=== PATIENT | female | born 1985 | race African-American/Black ===

== ENCOUNTER 2017-02-26 13:21 | Emergency (ER) | payer MEDICAID ==
--- NOTE | 2017-02-26 14:27 | ER Document Report ---
ED Medical Screen (RME) - General Chief Complaint: Abdominal Pain Stated Complaint: ABDOMINAL PAIN Time Seen by Provider: 02/26/17 14:18 Notes: This 31-year-old female patient comes emergency room complaining of intermittent pelvic pain for the past 5 days. LMP was on 02/24/2017. She had a conization biopsy on 02/20/2017, was treated prior to that with Flagyl for vaginal discharge. I have greeted and performed a rapid initial assessment of this patient. A comprehensive ED assessment and evaluation of the patient, analysis of test results and completion of the medical decision making process will be conducted by additional ED providers. TRAVEL OUTSIDE OF THE U[place] IN LAST 30 DAYS: No - Related Data Allergies/Adverse Reactions: Shellfish * [Shellfish] Allergy (Intermediate, Verified 07/21/16 09:29) swollen throat, itching Past Medical History Renal/ Medical History: Denies: Hx Peritoneal Dialysis Past Surgical History: Reports: Hx Gynecologic Surgery - OVARIAN CYST REMOVAL - Immunizations Hx Diphtheria, Pertussis, Tetanus Vaccination: Yes Physical Exam - Vital signs Vitals: Temp Pulse Resp BP Pulse Ox 98.9 F 82 16 119/80 97 02/26/17 13:42 02/26/17 13:42 02/26/17 13:42 02/26/17 13:42 02/26/17 13:42 Course - Vital Signs Vital signs: Temp Pulse Resp BP Pulse Ox 98.9 F 82 16 119/80 97 02/26/17 13:42 02/26/17 13:42 02/26/17 13:42 02/26/17 13:42 02/26/17 13:42
[2017-02-26 15:08] LABS: ABSOLUTE BASOPHILS # (AUTO) 0.1 10^3/uL (0.0-0.2); ABSOLUTE EOSINOPHILS # (AUTO) 0.2 10^3/uL (0.0-0.6); ABSOLUTE LYMPHOCYTES (AUTO) 2.9 10^3/uL (0.5-4.7); ABSOLUTE MONOCYTES (AUTO) 0.5 10^3/uL (0.1-1.4); ABSOLUTE NEUT (AUTO) 6.2 10^3/uL (1.7-8.2); BASOPHILS % (AUTO) 0.9 % (0-2); EOSINOPHILS % (AUTO) 2.3 % (0-6); HEMATOCRIT 38.1 % (36.0-47.0); HEMOGLOBIN 12.6 g/dL (12.0-15.5); HGB HCT DIFFERENCE -0.3; LYMPHOCYTES % (AUTO) 29.3 % (13-45); MEAN CORPUSCULAR HEMOGLOBIN 30.3 pg (27.0-33.4); MEAN CORPUSCULAR VOLUME 92 fl (80-97); RED BLOOD COUNT 4.16 10^6/uL (3.72-5.28); RED CELL DISTRIBUTION WIDTH 13.2 % (11.5-14.0); SEGMENTED NEUTROPHILS % (AUTO) 62.5 % (42-78)
[2017-02-26 15:21] LABS: ALANINE AMINOTRANSFERASE 32 U/L (9-52); ALBUMIN 3.8 g/dL (3.5-5.0); ALKALINE PHOSPHATASE 87 U/L (38-126); ANION GAP 9 (5-19); ASPARTATE AMINO TRANSFERASE 24 U/L (14-36); BILIRUBIN,DIRECT 0.2 mg/dL (0.0-0.4); BILIRUBIN,TOTAL 0.3 mg/dL (0.2-1.3); BLOOD UREA NITROGEN 11 mg/dL (7-20); CARBON DIOXIDE 27 mmol/L (22-30); CHLORIDE 105 mmol/L (98-107); CREATININE RESULT 0.69 mg/dL (0.52-1.25); GLUCOSE 84 mg/dL (75-110); POTASSIUM 4.6 mmol/L (3.6-5.0); SODIUM 140.9 mmol/L (137-145); TOTAL PROTEIN 7.1 g/dL (6.3-8.2)
[2017-02-26 16:37] LABS: CHLAM PCR NOT DETECTED (NOT DETECT)
--- NOTE | 2017-02-26 16:48 | ER Document Report ---
ED General - General Chief Complaint: Abdominal Pain Stated Complaint: ABDOMINAL PAIN Time Seen by Provider: 02/26/17 14:18 TRAVEL OUTSIDE OF THE [place].S. IN LAST 30 DAYS: No - HPI Notes: Patient is a 31-year-old female presents to the ED complaining of pelvic pain intermittently 1 week. Patient states that she did start her menstrual cycle up 2 days ago. He did have a conization biopsy 6 days ago. Patient states that she was treated for bacterial vaginosis 2 weeks ago with Flagyl. Patient states that this pain is different than her menstrual cramps. Pain is described as sharp. Patient concerned about an ovarian cyst as she has had one in the past. She is still eating and drink without any problems, but does have decreased appetite. Patient states that she was recently diagnosed with herpes as well and just finished antiviral medication. Patient states that she has not been sexually active in 2 months. Her last bowel movement was yesterday and was soft. Denies any med allergies, and she does not take any daily medications. Patient has not noticed any vaginal discharge since being treated for bacterial vaginosis. Denies any dysuria, hematuria, urgency/frequency. Denies any headaches, fever, URI, sore throat, chest pain, palpitations, syncope , cough, wheeze, shortness of breath, upper abdominal pain, nausea/vomiting/ diarrhea/constipation, urinary retention, or rash. - Related Data Allergies/Adverse Reactions: Shellfish * [Shellfish] Allergy (Intermediate, Verified 07/21/16 09:29) swollen throat, itching Past Medical History - Social History Smoking Status: Current Every Day Smoker Chew tobacco use (# tins/day): No Frequency of alcohol use: Occasional Drug Abuse: None Family History: None Patient has suicidal ideation: No Patient has homicidal ideation: No Renal/ Medical History: Denies: Hx Peritoneal Dialysis Past Surgical History: Reports: Hx Gynecologic Surgery - OVARIAN CYST REMOVAL - Immunizations Hx Diphtheria, Pertussis, Tetanus Vaccination: Yes Review of Systems - Review of Systems Notes: REVIEW OF SYSTEMS: CONSTITUTIONAL : Denies fever, chills, or sweats. Denies recent illness. EENT: Denies eye, ear, throat, or mouth pain or symptoms. Denies nasal or sinus congestion or discharge. Denies throat, tongue, or mouth swelling or difficulty swallowing. CARDIOVASCULAR: Denies chest pain. Denies palpitations or racing or irregular heart beat. Denies ankle edema. RESPIRATORY: Denies cough, cold, or chest congestion. Denies shortness of breath, difficulty breathing, or wheezing. GASTROINTESTINAL: see hpi GENITOURINARY: Denies difficulty urinating, painful urination, burning, frequency, blood in urine, or discharge. FEMALE GENITOURINARY: see hpi MUSCULOSKELETAL: Denies back or neck pain or stiffness. Denies joint pain or swelling. SKIN: Denies rash, lesions or sores. NEUROLOGICAL: Denies confusion or altered mental status. Denies passing out or loss of consciousness. Denies dizziness or lightheadedness. Denies headache. Denies weakness or paralysis or loss of use of either side. Denies problems with gait or speech. Denies sensory loss, numbness, or tingling. Denies seizures. ALL OTHER SYSTEMS REVIEWED AND NEGATIVE. Dictation was performed using [employer] voice recognition software Physical Exam - Vital signs Vitals: Temp Pulse Resp BP Pulse Ox 98.9 F 82 16 119/80 97 02/26/17 13:42 02/26/17 13:42 02/26/17 13:42 02/26/17 13:42 02/26/17 13:42 Notes: PHYSICAL EXAMINATION: GENERAL: Well-appearing, well-nourished and in no acute distress. HEAD: Atraumatic, normocephalic. EYES: Pupils equal round and reactive to light, extraocular movements intact, conjunctiva are normal. ENT: Nares patent, oropharynx clear without exudates. Moist mucous membranes. EAC's clear bilaterally. TMs intact bilaterally without erythema fluid or perforation. No tonsillar hypertrophy or erythema. No sinus tenderness. NECK: Normal range of motion, supple without lymphadenopathy. no rigidity. LUNGS: Breath sounds clear to auscultation bilaterally and equal. No wheezes rales or rhonchi. HEART: Regular rate and rhythm without murmurs ABDOMEN: Soft, nondistended abdomen. No guarding, no rebound. No masses appreciated. Normal bowel sounds present. CVA tenderness negative bilaterally. + tenderness to palpation of the pelvis/lower abdomen. Female : No inguinal adenopathy. External genitalia without erythema, lesions , or masses. Vaginal mucosa pink. Cervix parous, pink, and with bloody discharge. Uterus is smooth. No adnexal tenderness. No CMT. Musculoskeletal: FROM to passive/active. Strength 5+/5. Extremities: No cyanosis/clubbing/edema b/l. Peripheral pulses 2+. Capillary refill less than 3 seconds. NEUROLOGICAL: Cranial nerves grossly intact. Normal speech, normal gait. Normal sensory, motor exams PSYCH: Normal mood, normal affect. SKIN: Warm, Dry, normal turgor, no rashes or lesions noted. Course - Re-evaluation Re-evalutation: 02/26/17 19:[address] Mota who is in agreement with plan and discharge: Patient is an afebrile, well-hydrated, 31-year-old female presents to the ED with Vitals are stable. HCG negative. Urine showed large blood, but patient did urinate in a hat and is currently on her menstrual cycle. TVUS shows small amount of free fluid in the post. cul de sac, ?ruptured cyst. CBC/CMP unremarkable. Wet mount, Chlam/nita negative. CT abd/pelvis with IV contrast found the same free fluid in the pelvic cavity that was seen on TVUS. Toradol 15mg given IM today. Pt states that it helped with her pain and only has mild discomfort compared to the level it was. We will discharge for f/u with OBGYN in 1-2 days with [facility]. Recheck with PCM in 2-3 days. Return to the ED with any worsening/concerning symptoms as reviewed otherwise. Pt in agreement. - Vital Signs Vital signs: Temp Pulse Resp BP Pulse Ox 98.9 F 82 16 119/80 97 02/26/17 13:42 02/26/17 13:42 02/26/17 13:42 02/26/17 13:42 02/26/17 13:42 - Laboratory Result Diagrams: 02/26/17 14:42 02/26/17 14:42 Laboratory results interpreted by me: 02/26/17 16:43 Urine Blood LARGE H Ur Leukocyte Esterase SMALL H Discharge - Discharge Clinical Impression: Pelvic pain, Ruptured ovarian cyst Condition: Stable Disposition: HOME, SELF-CARE Instructions: Abdominal Pain ([facility]) Additional Instructions: Maintain fluids Tylenol/ibuprofen as needed Warm compresses/Cool compresses may help Monitor symptoms closely Recheck with your OBGYN in 1-2 days Recheck with your PCM in 2-3 days Return to the ED with any fever, Headache, chest pain, shortness of breath, trouble breathing, syncope, worsening abdominal pain, n/v/d, melena, blood in stool, dysuria, worsening pelvic pain, purulent discharge, large amounts of blood, dizziness, or any worsening/concerning symptoms otherwise. Ovarian Cyst, suspect ruptured based on your exam today: An ovarian cyst is a ball of fluid attached to the ovary. Ovarian cysts in women of child-bearing age are usually innocent. However, the cyst may cause pain when it grows or bursts. An innocent ovarian cyst will usually go away by itself. When the cyst becomes painful, you should rest. Pain medication may be required. Some women find a hot water bottle soothing. The pain usually resolves within one or two days. After menopause, an ovarian cyst may mean a tumor, and requires more aggressive evaluation -- usually surgery is recommended to remove or biopsy the cyst. A very large cyst requires evaluation at any age. Most cysts (even the innocent ones) require follow-up examination. Call the doctor or return at any time if the pain increases significantly, if you become faint, or if you experience vaginal bleeding. Referrals: [facility] [Provider Group] - Follow up tomorrow JOSEFINA PALMA, TIE BINDER-C [Primary Care Provider] - Follow up in 3-5 days
[2017-02-26 17:53] LABS: APPEARANCE,URINE SLIGHTLY-CLOUDY; BILIRUBIN,URINE NEGATIVE (NEGATIVE); GLUCOSE, URINE NEGATIVE (NEGATIVE); KETONES,URINE NEGATIVE (NEGATIVE); URINE SPECIFIC GRAVITY 1.008
[2017-02-26 17:54] LABS: BACTERIA,URINE TRACE /HPF; LEUKOCYTE ESTERASE,URINE SMALL (NEGATIVE); NITRITE,URINE NEGATIVE (NEGATIVE); PROTEIN,URINE NEGATIVE (NEGATIVE); RBC,URINE >100 /HPF; UROBILINOGEN,URINE NEGATIVE mg/dL (<2.0); WBC,URINE 0-1 /HPF
--- NOTE | 2017-02-26 18:24 | RADIOLOGY REPORT (SQ) ---
EXAM DESCRIPTION: U/S NON OB PEL TV W/DOPPLER COMPLETED DATE/TIME: 02/26/2017 5:58 pm REASON FOR STUDY: pelvic pain COMPARISON: None. TECHNIQUE: Dynamic and static grayscale images acquired of the pelvis via transvaginal approach and recorded on PACS. Additional selected color Doppler and spectral images recorded. LIMITATIONS: None. FINDINGS: UTERUS: Contour normal. No mass. ENDOMETRIAL STRIPE: No focal or generalized thickening. No masses. CERVIX: No nabothian cysts. RIGHT OVARY: No abnormal masses. RIGHT OVARY DOPPLER: Normal arterial vascular flow without evidence for torsion. LEFT OVARY: No abnormal masses. LEFT OVARY DOPPLER: Normal arterial vascular flow without evidence for torsion. FREE FLUID: Small amount of free fluid is identified in the posterior cul-de-sac. OTHER: No other significant finding. MEASUREMENTS: UTERUS: 8.7 x 5.0 x 4.2 cm ENDOMETRIAL STRIPE: 4.1 mm RIGHT OVARY: 2.7 x 1.4 x 1.4 cm LEFT OVARY: 2.6 x 1.6 x 1.7 cm IMPRESSION: Small amount of free fluid is identified in the posterior cul-de-sac. No other signific ant findings. TECHNICAL DOCUMENTATION: JOB ID: [id number] [employer]- All Rights Reserved
[2017-02-26] MEDS ORDERED: KETOROLAC TROMETHAMINE INJ/PF 30 MG/1 ML SDV IV ONE (18:31)
[2017-02-26] MEDS ORDERED: KETOROLAC TROMETHAMINE 60 MG/2 ML SDV IM ONE (18:34)
--- NOTE | 2017-02-26 19:34 | RADIOLOGY REPORT (SQ) ---
EXAM DESCRIPTION: CT ABD/PELVIS WITH IV ONLY COMPLETED DATE/TIME: 02/26/2017 7:20 pm REASON FOR STUDY: lower abdomen/pelvic pain COMPARISON: None. TECHNIQUE: CT scan of the abdomen and pelvis performed using helical scanning technique with dynamic intravenous contrast injection. No oral contrast. Images reviewed with lung, soft tissue, and bone windows. Reconstructed coronal and sagittal MPR images reviewed. Delayed images for evaluation of the urinary system also acquired. All images stored on PACS. All CT scanners at this facility use dose modulation, iterative reconstruction, and/or weight based d osing when appropriate to reduce radiation dose to as low as reasonably achievable (ALARA). [facility]: Dose Right [facility]: CareDose [facility]: Dose Right [facility]: Teradose 4D [facility]: TIP Imaging CONTRAST TYPE AND DOSE: contrast/concentration: Isovue 370.00 mg/ml; Total Contrast Delivered: 100.0 ml; Total Saline Delivered: 71.0 ml RENAL FUNCTION: GFR > 60. RADIATION DOSE: Up-to-date CT equipment and radiation dose reduction techniques were employed. CTDIv ol: 20.9 - 21.1 mGy. DLP: 2445 mGy-cm.. LIMITATIONS: None. FINDINGS: LOWER CHEST: No significant findings. No nodules or infiltrates. LIVER: Normal size. No masses. No dilated ducts. SPLEEN: Normal size. No focal lesions. PANCREAS: No masses. No significant calcifications. No adjacent inflammation or peripancreatic fluid collections. Pancreatic duct not dilated. GALLBLADDER: No identified stones by CT criteria. No inflammatory changes to suggest cholecystitis. ADRENAL GLANDS: 18 mm left adrenal adenoma. RIGHT KIDNEY AND URETER: No solid masses. No significant calcifications. No hydronephrosis or hyd roureter. LEFT KIDNEY AND URETER: No solid masses. No significant calcifications. No hydronephrosis or hydr oureter. AORTA AND VESSELS: No aneurysm. No dissection. Renal arteries, SMA, celiac without stenosis. RETROPERITONEUM: No retroperitoneal adenopathy, hemorrhage or masses. BOWEL AND PERITONEAL CAVITY: No masses or inflammatory changes. No free fluid or peritoneal masses. APPENDIX: Normal. PELVIS: Small amount of free fluid. Normal bladder. ABDOMINAL WALL: No masses. No hernias. BONES: No significant or acute findings. OTHER: No other significant finding. IMPRESSION: Small amount of pelvic free fluid. Otherwise no acute findings. TECHNICAL DOCUMENTATION: JOB ID: [id number] Quality ID # [id number]: Final reports with documentation of one or more dose reduction techniques (e.g., Au tomated exposure control, adjustment of the mA and/or kV according to patient size, use of iterative reconstruction technique) 2010 [employer]- All Rights Reserved
[2017-02-26 20:14] VITALS: BP 124/82
== END 2017-02-26 20:13 | disposition home or self-care (01) ==
LOC: ER 13:21
DX: R10.2 Pelvic and perineal pain (principal); R63.0 Anorexia; R10.9 Unspecified abdominal pain; F17.200 Nicotine dependence, unspecified, uncomplicated
CPT/HCPCS: 99284; 96372; 36415; 87086; 87210; 84703; 85025; 87088; 80053; 81001; 87491; 87591; 76830; 93976; 74177; J1885

== ENCOUNTER 2017-04-12 15:12 | Emergency (ER) | payer MEDICAID ==
[2017-04-12 15:18] VITALS: BP 129/92
[2017-04-12] MEDS ORDERED: LIDOCAINE 2% VISCOUS SOLN 20 ML UDCUP PO ONE (15:58)
[2017-04-12] MEDS ORDERED: PENICILLIN V POTASSIUM 500 MG TABLET PO ONE (15:58)
--- NOTE | 2017-04-12 16:08 | ER Document Report ---
ED Oral Problem - General Chief Complaint: Toothache Stated Complaint: TOOTHACHE Time Seen by Provider: 04/12/17 15:52 Mode of Arrival: Ambulatory Information source: Patient Notes: 31-year-old female presents to ED for complaint of toothache to the right upper jaw. She states she was scheduled to have this tooth removed by the dentist on Friday and he canceled the appointment and rescheduled it for the . Patient speaks in clear complete sentences. No definite abscess noted. There is redness around the tooth. TRAVEL OUTSIDE OF THE [place] IN LAST 30 DAYS: No - HPI Patient complains to provider of: Toothache Onset: Other - Long time Onset: Gradual Quality of pain: Sharp, Throbbing Severity: Moderate Pain Level: 4 Associated symptoms: Toothache Worsened by: Nothing Relieved by: Nothing Similar symptoms previously: Yes Recently seen / treated by doctor/dentist: No - Related Data Allergies/Adverse Reactions: Shellfish * [Shellfish] Allergy (Intermediate, Verified 07/21/16 09:29) swollen throat, itching Past Medical History - General Information source: Patient - Social History Smoking Status: Current Every Day Smoker Cigarette use (# per day): Yes - 1/2 ppd Chew tobacco use (# tins/day): No Smoking Education Provided: Yes - Less than 2 minutes Frequency of alcohol use: Occasional Drug Abuse: None Occupation: FIELD CLERK at [employer] Lives with: Parents Family History: None Patient has suicidal ideation: No Patient has homicidal ideation: No - Past Medical History Cardiac Medical History: Reports: None Pulmonary Medical History: Reports: Hx Bronchitis EENT Medical History: Reports: None Neurological Medical History: Reports: None Endocrine Medical History: Reports: None Renal/ Medical History: Reports: Hx Ovarian Cysts Malignancy Medical History: Reports: None GI Medical History: Reports: None Musculoskeltal Medical History: Reports None Skin Medical History: Reports Hx Cellulitis Psychiatric Medical History: Reports: None Traumatic Medical History: Reports: None Infectious Medical History: Reports: None Past Surgical History: Reports: Hx Gynecologic Surgery - OVARIAN CYST REMOVAL - Immunizations Hx Diphtheria, Pertussis, Tetanus Vaccination: Yes Review of Systems - Review of Systems Constitutional: No symptoms reported EENT: Dental problem Cardiovascular: No symptoms reported Respiratory: No symptoms reported Gastrointestinal: No symptoms reported Genitourinary: No symptoms reported Female Genitourinary: No symptoms reported Musculoskeletal: No symptoms reported Skin: No symptoms reported Hematologic/Lymphatic: No symptoms reported Neurological/Psychological: No symptoms reported Physical Exam - Vital signs Vitals: Temp Pulse Resp BP Pulse Ox 98.6 F 89 14 129/92 H 98 04/12/17 15:16 04/12/17 15:16 04/12/17 15:16 04/12/17 15:16 04/12/17 15:16 Interpretation: Normal - General General appearance: Appears well, Alert - HEENT Head: Normocephalic, Atraumatic Eyes: Normal Pupils: PERRL Ears: Normal External canal: Normal Tympanic membrane: Normal Sinus: Normal Nasal: Normal Mouth/Lips: Caries - right upper jaw with minimal erythema no abscess, cavity to the tooth Mucous membranes: Normal Pharynx: Normal Neck: Normal - Respiratory Respiratory status: No respiratory distress Chest status: Nontender Breath sounds: Normal Chest palpation: Normal - Cardiovascular Rhythm: Regular Heart sounds: Normal auscultation Murmur: No - Abdominal Inspection: Normal Distension: No distension Bowel sounds: Normal Tenderness: Nontender Organomegaly: No organomegaly - Back Back: Normal, Nontender - Extremities General upper extremity: Normal inspection, Nontender, Normal color, Normal ROM , Normal temperature General lower extremity: Normal inspection, Nontender, Normal color, Normal ROM , Normal temperature, Normal weight bearing. No: Aydee's sign - Neurological Neuro grossly intact: Yes Cognition: Normal Orientation: AAOx4 [place] Coma Scale Eye Opening: Spontaneous [place] Coma Scale Verbal: Oriented Yifan Coma Scale Motor: Obeys Commands Yifan Coma Scale Total: 15 Speech: Normal Motor strength normal: LUE, RUE, LLE, RLE Sensory: Normal - Psychological Associated symptoms: Normal affect, Normal mood - Skin Skin Temperature: Warm Skin Moisture: Dry Skin Color: Normal Course - Re-evaluation Re-evalutation: 04/12/17 16:35 Patient was treated with Penicillin VK and lidocaine viscous jelly to the tooth. Patient was sent home with a syringe of viscous lidocaine to apply to the tooth every 4 hours. Patient to follow-up with dentist as scheduled. - Vital Signs Vital signs: Temp Pulse Resp BP Pulse Ox 98.6 F 89 14 129/92 H 98 04/12/17 15:16 04/12/17 15:16 04/12/17 15:16 04/12/17 15:16 04/12/17 15:16 Discharge - Discharge Clinical Impression: Pain due to dental caries Condition: Stable Disposition: HOME, SELF-CARE Additional Instructions: TTOOTHACHE: Your pain is due to dental decay. The tooth must be repaired in order for you to feel better. You will, therefore, be referred to a dentist. We do not have dentists on the staff at [facility]. Severe swelling or drainage around a tooth usually means a dental abscess. This also requires evaluation and treatment by the dentist, but antibiotics may be prescribed while awaiting dental treatment. You should be rechecked immediately if you develop major swelling of the face, increasing pain, a lump in the jaw or gums, headache, difficulty swallowing, or fever. PENICILLIN V K: You have been given a prescription for Penicillin VK. Your physician has determined that this is the best antibiotic for your condition. Pen VK can be taken with meals, however more of the antibiotic gets into the bloodstream if it's taken on an empty stomach. Penicillin usually has no side effects. However, allergy to penicillins is common. If you have had an allergic reaction to any drug of the penicillin family, you should never take any other penicillin. Notify your doctor at once if you develop hives, itching, swelling, faintness, or shortness of breath. You can use Lidoderm Justen jelly to the tooth every 4 hours. You have been given a syringe of lidocaine jelly they will numb the area around the tooth and help with your dental pain. FOLLOW-UP CARE: You have been referred for follow-up care to the dentists listed below. Call the dentists office for an appointment as you were instructed or within the next two days. If you experience worsening or a significant change in your symptoms, notify the physician immediately or return to the Emergency Department at any time for re-evaluation. [facility] [address] [place], [place] Friday mornings, by appointment [facility] [address] [place] [address] [facility] [address] [facility] [place] [address] [place] [facility] [place] [facility] [address] [email or web address] [address] [place] [address] Friday- 8:00am to 5:00 pm Will see patients from other [facility]. Charges based on income and family size and accepts Medicare, Medicaid, and Insurances Will pull molars [facility] Student [facility] [id number] Hours of Operation 8:00 am - 4:30 pm weekdays The following dental offices accept Medicaid: [facility] Dr. Adhikari Dr. Barros Dr. Paula Dr. Gagnon Horace Tim, Serjio, and Abdi oral surgery Dr. Torres ([place]) Dr. Bush ([place]) [facility] Drs. Wallace ([place]) Dr. Eason ([place]) [facility] [place] [facility] Dr. Burgess ([place]) Drs. Gracia and ([place]) Medicaid Care Line Prescriptions: Penicillin V Potassium [Penicillin Vk 500 mg Tablet] 500 mg PO BID #20 tablet Forms: Elevated Blood Pressure, Smoking Cessation Education, Return to Work
== END 2017-04-12 16:13 | disposition home or self-care (01) ==
LOC: ER 15:12
DX: K02.9 Dental caries, unspecified (principal)
CPT/HCPCS: 99282; J3490 ×2

== ENCOUNTER 2017-09-23 14:12 | Emergency (ER) | payer MEDICAID ==
--- NOTE | 2017-09-23 16:14 | ER Document Report ---
ED General - General Mode of Arrival: Ambulatory Information source: Patient TRAVEL OUTSIDE OF THE [place] IN LAST 30 DAYS: No - General Chief Complaint: Abdominal Cramping Stated Complaint: ABDOMINAL PAIN Time Seen by Provider: 09/23/17 15:57 Notes: Patient is a 30-year-old female who is currently 16 weeks presents to the emergency department complaining of abdominal cramps onset 3 days ago. Patient states that she also noticed some vaginal bleeding once last week on the toilet paper. Patient states that her abdominal cramps have been intermittent in her lower quadrant and also states she has some epigastric burning. Patient states that he also feels dehydrated. Patient is currently . (KRISTA,TAMAYA) - Related Data Allergies/Adverse Reactions: Shellfish * [Shellfish] Allergy (Intermediate, Verified 09/23/17 14:14) swollen throat, itching Past Medical History - General Information source: Patient - Social History Smoking Status: Current Every Day Smoker Chew tobacco use (# tins/day): No Frequency of alcohol use: None Drug Abuse: None Family History: None Patient has suicidal ideation: No Patient has homicidal ideation: No Pulmonary Medical History: Reports: Hx Bronchitis Renal/ Medical History: Reports: Hx Ovarian Cysts Skin Medical History: Reports Hx Cellulitis Past Surgical History: Reports: Hx Gynecologic Surgery - OVARIAN CYST REMOVAL - Immunizations Hx Diphtheria, Pertussis, Tetanus Vaccination: Yes Review of Systems - Review of Systems Constitutional: No symptoms reported EENT: No symptoms reported Cardiovascular: No symptoms reported Respiratory: No symptoms reported Gastrointestinal: See HPI, Abdominal pain Genitourinary: No symptoms reported Female Genitourinary: See HPI, Vaginal bleeding Musculoskeletal: No symptoms reported Skin: No symptoms reported Hematologic/Lymphatic: No symptoms reported Neurological/Psychological: No symptoms reported -: Yes All other systems reviewed and negative Physical Exam - Vital signs Vitals: Temp Pulse Resp BP Pulse Ox 98.6 F 109 H 18 114/70 98 09/23/17 14:18 09/23/17 14:18 09/23/17 14:18 09/23/17 14:18 09/23/17 14:18 - Notes Notes: GENERAL: Alert, interacts well. No acute distress. HEAD: Normocephalic, atraumatic. EYES: Pupils equal, round, and reactive to light. Extraocular movements intact. ENT: Oral mucosa moist, tongue midline. NECK: Full range of motion. Supple. Trachea midline. LUNGS: Clear to auscultation bilaterally, no wheezes, rales, or rhonchi. No respiratory distress. HEART: Regular rate and rhythm. No murmurs, gallops, or rubs. ABDOMEN: Soft, non-tender. Non-distended. Bowel sounds present in all 4 quadrants. EXTREMITIES: Moves all 4 extremities spontaneously. NEUROLOGICAL: Alert and oriented x3. Normal speech. PSYCH: Normal affect, normal mood. SKIN: Warm, dry, normal turgor. No rashes or lesions noted. (AUREA VELASCO) Course - Re-evaluation Re-evalutation: 09/23/17 17:14 Patient has no signs of urinary tract infection. Will send for culture and patient will be alerted if culture comes back positive. She does have trace ketones in her urine. Her cramping is likely due to mild dehydration. Advised patient to drink 4-6 glasses of water a day and abstain from any carbonated sugary beverages as she had one in triage. Patient denies any vaginal bleeding or loss of fluids and states that she had previous ultrasound that shows valid intrauterine did not feel any imaging was warranted at this time. I did discuss she should begin to have any bleeding or loss of fluids she would need to be reevaluated. (VIDA LAROSE) - Vital Signs Vital signs: Temp Pulse Resp BP Pulse Ox 98.6 F 97 18 111/76 97 09/23/17 14:18 09/23/17 20:39 09/23/17 20:39 09/23/17 20:39 09/23/17 20:39 - Laboratory Laboratory results interpreted by me: 09/23/17 15:51 Urine Ketones TRACE H Urine Urobilinogen 2.0 H Ur Leukocyte Esterase TRACE H Urine Ascorbic Acid 40 H Discharge - Discharge Clinical Impression: Dehydration during Condition: Stable Disposition: HOME, SELF-CARE Additional Instructions: As we discussed, the ultrasound showed a viable 16 week gestation to day baby. I would like you to follow-up with your OB doctor as planned Return to the ER for any worsening abdominal pain, cramping or vaginal bleeding. You will be called if urine culture grows any bacteria but today her urinalysis shows no signs of urinary tract infection. It does show mild signs of dehydration and I suggest to drink 4-6 glasses of water a day and abstain from any sugary drinks during . If you began to have any loss of fluids worsening symptoms or vaginal bleeding please seek medical attention. Referrals: JOBY ARTEAGA MD [Primary Care Provider] - Follow up as needed Scribe Attestation: 09/24/17 23:13 I personally performed the services described documentation, reviewed and edited the documentation which was dictated to describe my presence, and it accurately records my words and actions. (VIDA LAROSE) Scribe Documentation - Scribe Written by Teresae:: David Paulson, 09/23/2017 16:17 acting as scribe for :: Gennaro
[2017-09-23 16:37] LABS: APPEARANCE,URINE SLIGHTLY-CLOUDY; BILIRUBIN,URINE NEGATIVE (NEGATIVE); COLOR,URINE YELLOW; GLUCOSE, URINE NEGATIVE (NEGATIVE); KETONES,URINE TRACE mg/dL (NEGATIVE); LEUKOCYTE ESTERASE,URINE TRACE (NEGATIVE); NITRITE,URINE NEGATIVE (NEGATIVE); PROTEIN,URINE NEGATIVE (NEGATIVE); URINE SPECIFIC GRAVITY 1.025
--- NOTE | 2017-09-23 17:36 | ER Document Report ---
ED General - General Chief Complaint: Abdominal Cramping Stated Complaint: ABDOMINAL PAIN Time Seen by Provider: 09/23/17 15:57 Mode of Arrival: Ambulatory Information source: Patient Notes: This is a 32-year-old female 3 para 2, approximately 16 weeks , blood type O+, presents to the emergency room with abdominal cramping. Patient denies any fever. Patient does state she had small amount of vaginal spotting 2 days ago. TRAVEL OUTSIDE OF THE [place] IN LAST 30 DAYS: No - Related Data Allergies/Adverse Reactions: Shellfish * [Shellfish] Allergy (Intermediate, Verified 09/23/17 14:14) swollen throat, itching Past Medical History - General Information source: Patient - Social History Smoking Status: Current Every Day Smoker Chew tobacco use (# tins/day): No Frequency of alcohol use: None Drug Abuse: None Family History: None Patient has suicidal ideation: No Patient has homicidal ideation: No Pulmonary Medical History: Reports: Hx Bronchitis Renal/ Medical History: Reports: Hx Ovarian Cysts. Denies: Hx Peritoneal Dialysis Skin Medical History: Reports Hx Cellulitis Past Surgical History: Reports: Hx Gynecologic Surgery - OVARIAN CYST REMOVAL - Immunizations Hx Diphtheria, Pertussis, Tetanus Vaccination: Yes Physical Exam - Vital signs Vitals: Temp Pulse Resp BP Pulse Ox 98.6 F 109 H 18 114/70 98 09/23/17 14:18 09/23/17 14:18 09/23/17 14:18 09/23/17 14:18 09/23/17 14:18 Notes: Physical exam: GENERAL: 82-year-old female, alert and oriented 3, no acute distress HEAD: Atraumatic, normocephalic. EYES: Pupils equal round and reactive to light, extraocular movements intact, sclera anicteric, conjunctiva are normal. ENT: TMs normal, nares patent, oropharynx clear without exudates. Moist mucous membranes. NECK: Normal range of motion, supple without obvious mass or JVD. LUNGS: Breath sounds clear to auscultation bilaterally and equal. No wheezes rales or rhonchi. HEART: Regular rate and rhythm without murmurs, rubs or gallops. ABDOMEN: Soft, normoactive bowel sounds. No tenderness to palpation. No guarding, no rebound. No masses appreciated. EXTREMITIES: Normal range of motion, no pitting or edema. No clubbing or cyanosis. NEUROLOGICAL: Cranial nerves II through XII grossly intact. Normal speech, moving all extremities. PSYCH: Normal mood, normal affect. SKIN: Warm, Dry, normal turgor, no rashes or lesions noted. Course - Vital Signs Vital signs: Temp Pulse Resp BP Pulse Ox 98.6 F 109 H 18 114/70 98 09/23/17 14:18 09/23/17 14:18 09/23/17 14:18 09/23/17 14:18 09/23/17 14:18 - Laboratory Laboratory results interpreted by me: 09/23/17 15:51 Urine Ketones TRACE H Urine Urobilinogen 2.0 H Ur Leukocyte Esterase TRACE H Urine Ascorbic Acid 40 H Discharge - Discharge Clinical Impression: Dehydration during Condition: Stable Disposition: HOME, SELF-CARE Additional Instructions: As we discussed, the ultrasound showed a viable 16 week gestation to day baby. I would like you to follow-up with your OB doctor as planned Return to the ER for any worsening abdominal pain, cramping or vaginal bleeding. You will be called if urine culture grows any bacteria but today her urinalysis shows no signs of urinary tract infection. It does show mild signs of dehydration and I suggest to drink 4-6 glasses of water a day and abstain from any sugary drinks during . If you began to have any loss of fluids worsening symptoms or vaginal bleeding please seek medical attention. Referrals: JOBY ARTEAGA MD [Primary Care Provider] - Follow up as needed
[2017-09-23] MEDS ORDERED: DEXTROSE 5%-NORMAL SALINE 1,000 ML IV ONE (17:37)
--- NOTE | 2017-09-23 19:40 | RADIOLOGY REPORT (SQ) ---
EXAM DESCRIPTION: U/S OB 14+ TRNABD 1GES W/O DOP COMPLETED DATE/TIME: 09/23/2017 7:20 pm REASON FOR STUDY: cramping COMPARISON: None. TECHNIQUE: Static and Dynamic grayscale imaging performed of gravid uterus using transabdominal appr oach. Additional selected color Doppler and spectral images recorded. All stored on PACS. LIMITATIONS: Gestational age, position and maternal body habitus. FINDINGS: EGA: 16 week 2 day SANDOVAL: 03/08/2018 EFW: 156 +/- 23 grams PERCENTILE: Not calculated. JHONATHAN: Largest vertical pocket 4.8 cm. PLACENTA: Anterior. Hypoechoic area within the placenta may represent a venous [place]. No Doppler det ectable blood flow within this region. PRESENTATION: Transverse ANATOMY: HEART RATE: 139 beats per minute. FOUR CHAMBER HEART: Not visualized. THREE VESSEL CORD: Not visualized. CORD INSERTION: Not visualized. KIDNEYS AND BLADDER: Kidneys not discretely seen. Bladder looks normal. STOMACH: Visualized. Appears normal. SPINE: Incompletely visualized, poorly assessed. BRAIN AND LATERAL VENTRICLES: Visualized. Appear normal. OTHER: No other significant finding. MATERNAL ADNEXA: Not visualized. CERVICAL LENGTH: Not measured. Grossly closed. OTHER: No other significant finding. IMPRESSION: 1. Limited study as above. There are many anatomic structures which are not seen and/or not assessed. Follow-up anatomic survey will be necessary. 2. Hypoechoic area in the placenta may represent a venous Wadsworth. A small area of hemorrhage is also in the differential. 3. Living IUP, 16 weeks 2 days. Trimester of : Second trimester - 13 weeks 1 day to 27 weeks 6 days. TECHNICAL DOCUMENTATION: JOB ID: [id number] All Rights Reserved
[2017-09-23 20:43] VITALS: BP 111/76
== END 2017-09-23 20:39 | disposition home or self-care (01) ==
LOC: ER 14:12
DX: O26.92 Pregnancy related conditions, unspecified, second trimester (principal); E86.0 Dehydration; O99.332 Smoking (tobacco) complicating pregnancy, second trimester; F17.200 Nicotine dependence, unspecified, uncomplicated; Z3A.16 16 weeks gestation of pregnancy; Z91.013 Allergy to seafood
CPT/HCPCS: 76805; 81001; 87086; 87088; 96360; 99284

== ENCOUNTER 2018-01-28 00:51 | Outpatient (CLI) | payer MEDICAID ==
[2018-01-28 01:12] LABS: APPEARANCE,URINE CLEAR; BILIRUBIN,URINE NEGATIVE (NEGATIVE); COLOR,URINE YELLOW; GLUCOSE, URINE NEGATIVE (NEGATIVE); KETONES,URINE NEGATIVE (NEGATIVE); LEUKOCYTE ESTERASE,URINE TRACE (NEGATIVE); NITRITE,URINE NEGATIVE (NEGATIVE); PROTEIN,URINE NEGATIVE (NEGATIVE); URINE SPECIFIC GRAVITY 1.011; UROBILINOGEN,URINE NEGATIVE mg/dL (<2.0)
[2018-01-28 01:27] LABS: AMNISURE (ROM) NEGATIVE (NEGATIVE)
[2018-01-28] MEDS ORDERED: RINGERS SOLUTION,LACTATED 1,000 ML IV PRN (01:33)
[2018-01-28 01:45] LABS: URINE AMPHETAMINES SCREEN NEGATIVE; URINE BARBITURATES SCREEN NEGATIVE; URINE BENZODIAZEPINES SCREEN NEGATIVE; URINE COCAINE SCREEN NEGATIVE; URINE MARIJUANA (THC) SCREEN NEGATIVE; URINE METHADONE SCREEN NEGATIVE; URINE PHENCYCLIDINE SCREEN NEGATIVE
--- NOTE | 2018-01-28 03:54 | RADIOLOGY REPORT (SQ) ---
EXAM DESCRIPTION: US BIOPHYSICAL PROFILE WITHOUT NON STRESS TEST CLINICAL HISTORY: 32 years Female, BPP, nonreactive NST Comparison: 1.30.18 TECHNIQUE/LIMITATION: Targeted OB sonogram for requested parameters only. FINDINGS: Sonographic biophysical profile: breathin posture and tone: 2 movement: 2 Qualitative amniotic fluid volume: 2 heart rate: 135 bpm Presentation: Vertex JHONATHAN: 16.4 Total score: Eight of eight IMPRESSION: Targeted OB sonogram for requested parameters
--- NOTE | 2018-01-28 04:13 | Non Stress Test Report ---
Non Stress Test Datetime Report Generated by CPN: 01/28/2018 04:13 DEMOGRAPHIC Test Number: 1 EGA NST: 34.1 INDICATION Indication for Study: Ordered by Provider MONITORING Monitor Explained: Monitor Explained; Test Explained; Patient Verbalized Understanding Time on Monitor: 01/28/2018 00:59 Time off Monitor: 01/28/2018 03:12 NST Duration: 133 NST INTERVENTIONS NST Interventions: PO Hydration; IV Fluids; Meal Given; Reposition Patient; Vibroacoustic Stim; For Biophysical Profile Physician Notified NST: Dr. Vu BABY A: [id number] Movement : Present Contraction Frequency : 5-10 FHR Baseline : 125 Accelerations : 15X15 Decelerations : None Variability : Moderate 6-25bpm NST Review: Does Not Meet Criteria for Reactive NST NST Review and Verified By : Channing Hernandez RN NST Results: Non-Reactive NST COMMENTS NST Comments: Pt sent for BPP NST Comments: BPP was 8/8 NST REPORT Report Trigger: Send Report
== END 2018-01-28 04:04 | disposition home or self-care (01) ==
LOC: LC 00:51
PROVIDERS: ATTEND Obstetrics & Gynecology
PROC: 4A1HXCZ Monitoring of Products of Conception, Cardiac Rate, External Approach (ICD-10-PCS; principal; 2018-01-28)
DX: O47.03 False labor before 37 completed weeks of gestation, third trimester (principal); Z3A.34 34 weeks gestation of pregnancy
CPT/HCPCS: 36415; 76819; 80307; 80361; 81001; 84112

== ENCOUNTER 2018-03-01 22:44 | Outpatient (CLI) | payer MEDICAID ==
[2018-03-01 23:28] LABS: APPEARANCE,URINE SLIGHTLY-CLOUDY; BILIRUBIN,URINE NEGATIVE (NEGATIVE); COLOR,URINE YELLOW; GLUCOSE, URINE NEGATIVE (NEGATIVE); KETONES,URINE NEGATIVE (NEGATIVE); LEUKOCYTE ESTERASE,URINE LARGE (NEGATIVE); NITRITE,URINE NEGATIVE (NEGATIVE); PROTEIN,URINE NEGATIVE (NEGATIVE); URINE SPECIFIC GRAVITY 1.005; UROBILINOGEN,URINE NEGATIVE mg/dL (<2.0)
[2018-03-01 23:48] LABS: URINE AMPHETAMINES SCREEN NEGATIVE; URINE BARBITURATES SCREEN NEGATIVE; URINE BENZODIAZEPINES SCREEN NEGATIVE; URINE COCAINE SCREEN NEGATIVE; URINE MARIJUANA (THC) SCREEN NEGATIVE; URINE METHADONE SCREEN NEGATIVE; URINE PHENCYCLIDINE SCREEN NEGATIVE
== END 2018-03-02 01:23 | disposition home or self-care (01) ==
LOC: LC 22:44
PROVIDERS: ATTEND Student in an Organized Health Care Education/Training Program
PROC: 4A1HXCZ Monitoring of Products of Conception, Cardiac Rate, External Approach (ICD-10-PCS; principal; 2018-03-01)
DX: O47.1 False labor at or after 37 completed weeks of gestation (principal); Z3A.38 38 weeks gestation of pregnancy
CPT/HCPCS: 59025; 80307; 81005

== ENCOUNTER 2018-03-03 05:03 | Inpatient (IN) | payer MEDICAID ==
[2018-03-02 09:47] LABS: AMORPHOUS SEDIMENT,URINE TRACE /HPF; APPEARANCE,URINE SLIGHTLY-CLOUDY; BILIRUBIN,URINE NEGATIVE (NEGATIVE); COLOR,URINE YELLOW; GLUCOSE, URINE NEGATIVE (NEGATIVE); KETONES,URINE NEGATIVE (NEGATIVE); LEUKOCYTE ESTERASE,URINE TRACE (NEGATIVE); NITRITE,URINE NEGATIVE (NEGATIVE); PROTEIN,URINE NEGATIVE (NEGATIVE); URINE SPECIFIC GRAVITY 1.018; UROBILINOGEN,URINE NEGATIVE mg/dL (<2.0)
[2018-03-02 10:47] LABS: ABSOLUTE BASOPHILS # (AUTO) 0.1 10^3/uL (0.0-0.2); ABSOLUTE EOSINOPHILS # (AUTO) 0.1 10^3/uL (0.0-0.6); ABSOLUTE MONOCYTES (AUTO) 0.5 10^3/uL (0.1-1.4); BASOPHILS % (AUTO) 0.8 % (0-2); EOSINOPHILS % (AUTO) 1.2 % (0-6); HEMATOCRIT 31.9 % (36.0-47.0); MEAN CORPUSCULAR HEMOGLOBIN 31.2 pg (27.0-33.4); MEAN CORPUSCULAR HGB CONC 34.6 g/dL (32.0-36.0); MEAN CORPUSCULAR VOLUME 90 fl (80-97); MONOCYTES % (AUTO) 4.6 % (3-13); PLATELET COUNT 265 10^3/uL (150-450); RED BLOOD COUNT 3.53 10^6/uL (3.72-5.28); RED CELL DISTRIBUTION WIDTH 14.1 % (11.5-14.0); SEGMENTED NEUTROPHILS % (AUTO) 74.4 % (42-78); TOTAL CELLS COUNTED % (AUTO) 100 %; WHITE BLOOD COUNT 10.7 10^3/uL (4.0-10.5)
[2018-03-02 11:14] LABS: URINE AMPHETAMINES SCREEN NEGATIVE; URINE BARBITURATES SCREEN NEGATIVE; URINE BENZODIAZEPINES SCREEN NEGATIVE; URINE COCAINE SCREEN NEGATIVE; URINE MARIJUANA (THC) SCREEN NEGATIVE; URINE METHADONE SCREEN NEGATIVE; URINE PHENCYCLIDINE SCREEN NEGATIVE
[~2018-03-03 05:03] MED LIST: AZITHROMYCIN 500 MG in DEXTROSE 5%-WATER 250 ML IV PRN; LACTATED RINGERS 1000 ML IV PRN; LIDOCAINE 0.5% INJ-PF (5 MG/ML) 50 ML SDV SUBCUT PRN; RINGERS SOLUTION,LACTATED 1,500 ML IV PRN
[2018-03-03] MEDS ORDERED: AZITHROMYCIN INJ 500 MG VIAL IV ONE (06:00)
[2018-03-03] MEDS ORDERED: OXYTOCIN 10 UNIT/ML VIAL ONE (07:16)
[2018-03-03] MEDS ORDERED: KETOROLAC TROMETHAMINE INJ/PF 30 MG/1 ML SDV ONE ×2 (07:16→17:43)
[2018-03-03] MEDS ORDERED: MIDAZOLAM 2 MG/2 ML INJ ONE (07:17)
[2018-03-03] MEDS ORDERED: EPHEDRINE SULFATE INJ 50 MG/1 ML AMPULE ONE (07:17)
[2018-03-03] MEDS ORDERED: OXYTOCIN/NORMAL SALINE 20 UNIT/1,000 ML RTUINJ ONE (07:17)
[2018-03-03] MEDS ORDERED: FENTANYL CITRATE INJ/PF 100 MCG/2 ML AMPUL ONE (07:17)
[2018-03-03] MEDS ORDERED: ACETAMINOPHEN 1,000 MG/100 ML RTUPB IV ONE (07:17)
[2018-03-03] MEDS ORDERED: CARBOPROST TROMETHAMINE INJ 250 MCG/1 ML AMPULE ONE (07:18)
[2018-03-03] MEDS ORDERED: METHYLERGONOVINE MALEATE INJ/PF 0.2 MG/1 ML AMPULE ONE (07:18)
[2018-03-03] MEDS: CEFAZOLIN 1 GM/D5W RTU 1 GM/50 ML RTUPB IV PRN ×2 (07:50→08:07)
[2018-03-03] MEDS ORDERED: BUPIVACAINE HCL/DEX-WATER/PF 15 MG/2 ML AMPULE ONE (07:54)
[2018-03-03] MEDS ORDERED: ONDANSETRON HCL INJ/PF 4 MG/2 ML SDV IV PRN (08:19)
[2018-03-03] MEDS ORDERED: MEPERIDINE HCL/PF INJ 25 MG/1 ML DISP.SYRIN IV PRN (08:19)
[2018-03-03] MEDS ORDERED: DIPHENHYDRAMINE HCL 50 MG/ML VIAL IV PRN (08:19)
[2018-03-03] MEDS ORDERED: FENTANYL CITRATE INJ/PF 100 MCG/2 ML AMPUL IV PRN ×3 (08:19)
[2018-03-03] MEDS ORDERED: PROMETHAZINE HCL INJ 25 MG/1 ML VIAL IV PRN ×3 (08:19→09:08)
[2018-03-03] MEDS ORDERED: OXYCODONE-ACETAMINOPHEN 5-325 MG TABLET PO PRN ×2 (08:19)
[2018-03-03] MEDS ORDERED: MORPHINE SULFATE 10 MG/ML INJ IV PRN ×2 (08:19→14:33)
--- NOTE | 2018-03-03 09:00 | OPERATIVE REPORT E ---
Operative Report NAME: LYRIC THAKKAR : 1985 AGE: 32Y DATE OF SURGERY: 03/03/2018 ROOM: 218 PREOPERATIVE DIAGNOSIS: IUP at term with prior and desire for sterilization. POSTOPERATIVE DIAGNOSIS: IUP at term with prior and desire for sterilization. OPERATION: Repeat low-transverse with delivery of a viable and a bilateral tubal ligation using Filshie clips. SURGEON: Monserrat YAN M.D. ANESTHESIA: Spinal. ESTIMATED BLOOD LOSS: Less than 1000 mL. TISSUE REMOVED: Placenta. PROCEDURE: The patient was placed in a supine position, rolled on her right side, prepped, and draped in the usual sterile fashion. A Pfannenstiel incision was made and the incision extended through the subcutaneous tissue by sharp dissection. Fascia sharply divided. The rectus muscle was bluntly and sharply divided. Parietal peritoneum was entered with sharp dissection. The uterus was nicked in the midline and extended bilaterally. When the membranes ruptured there was copious amounts of meconium fluid observed. The infant was then delivered through the uterine incision. Nose and mouth were suctioned with bulb syringe. The cord was clamped and the was passed from the table. The placenta was manually extracted. The uterus was closed in 2 layers using #1 Vicryl, the first a running stitch and the second a Lembert stitch imbricating the first layer. A second stay stitch was placed in 2 areas to control bleeding, [id number] sutures. The right fallopian tube was clipped in the proximal portion with a good purchase of tissue being noted. The procedure was repeated on the left, both tubes identified to the fimbria prior to and after applying the clips. The fascia was then closed with 0 Vicryl and the skin was closed with subcutaneous absorbable ravi. The patient tolerated it well and was taken to recovery in good condition. Her urine remained clear throughout the procedure. DICTATING PHYSICIAN: Monserrat YAN M.D. [id number] PHY#: [id number] ID: [id number] JOB#: [id number] ACCT: [id number] cc:Monserrat YAN M.D. >
[2018-03-03] MEDS ORDERED: DIPH/PERTUSS(ACELL)/TETANUS VAC/PF 0.5 ML SYR (>=10YO) IM PRN (09:08)
[2018-03-03] MEDS ORDERED: MEASLES,MUMPS&RUBELLA VACC/PF 0.5 ML VIAL SUBCUT PRN (09:08)
[2018-03-03] MEDS ORDERED: OXYTOCIN/NORMAL SALINE 20 UNIT/1,000 ML RTUINJ IV PRN (09:08)
[2018-03-03] MEDS ORDERED: ACETAMINOPHEN 325 MG TABLET PO PRN (09:08)
[2018-03-03] MEDS ORDERED: MORPHINE SULFATE 10 MG/ML INJ IM PRN (09:08)
--- NOTE | 2018-03-03 09:10 | PDOC DELIVERY SUMMARY ---
Delivery Summary - Maternal Hx : III Hx # Term Pregnancies: 2 Hx # Pregnancies: 0 Hx Total # of Abortions (Sponateous & Elective): 0 SANDOVAL: 03/10/18 Ruptured Membranes: AROM Time of Rupture: 08:13 Fluids: Meconium Stained - Delivery Presentation: Vertex Heart Rate Monitoring: Done Pre-Operatively Support Person Present: Yes Location: OR : Scheduled Placenta: Within Normal Limits Delivery of Placenta Date: 03/03/18 Delivery of Placenta Time: 08:14 - Medications Type of Anesthesia:: Spinal - Assess and Care Baby 1 Male Delivery of Infant Date: 03/03/18 Delivery of Time: 08:13 Preprinted Number On Band: [id number] Infant Skin to Skin: No Mode of Transport: Bassinet - Delivery Personnel Middleware Systems Architect: JANIE Hood RN: Bill Hood RN: ALVARO APARICIO RN: VIPIN GLASGOW MD: FARRAH
[2018-03-03] MEDS: DOCUSATE SODIUM 100 MG CAPSULE PO SCH ×2 (09:51→17:49)
[2018-03-03] MEDS: FENTANYL CITRATE INJ/PF 100 MCG/2 ML AMPUL ONE ×2 (09:51→10:05)
[2018-03-03] MEDS: PRENATAL VITAMIN W DHA CAPSULE PO SCH (09:51)
[2018-03-03] MEDS: OXYCODONE-ACETAMINOPHEN 5-325 MG TABLET PO PRN ×2 (11:27→16:45)
[2018-03-03] MEDS ORDERED: MORPHINE SULFATE 10 MG/ML INJ ONE (13:56)
[2018-03-03] MEDS ORDERED: PHENYLEPHRINE HCL INJ/PF 10 MG/1 ML SDV ONE (16:22)
[2018-03-03] MEDS ORDERED: ONDANSETRON HCL INJ/PF 4 MG/2 ML SDV ONE (16:22)
[2018-03-03] MEDS: KETOROLAC TROMETHAMINE INJ/PF 30 MG/1 ML SDV IV SCH (23:19)
[2018-03-04] MEDS: OXYCODONE-ACETAMINOPHEN 5-325 MG TABLET PO PRN ×5 (01:25→21:04)
[2018-03-04] MEDS: SIMETHICONE 80 MG TAB.CHEW PO PRN ×2 (01:34→16:47)
[2018-03-04] MEDS: KETOROLAC TROMETHAMINE INJ/PF 30 MG/1 ML SDV IV SCH (05:37)
[2018-03-04 09:14] LABS: HEMATOCRIT 26.5 % (36.0-47.0); MEAN CORPUSCULAR HEMOGLOBIN 31.5 pg (27.0-33.4); MEAN CORPUSCULAR HGB CONC 34.1 g/dL (32.0-36.0); MEAN CORPUSCULAR VOLUME 92 fl (80-97); PLATELET COUNT 237 10^3/uL (150-450); RED BLOOD COUNT 2.87 10^6/uL (3.72-5.28); RED CELL DISTRIBUTION WIDTH 14.1 % (11.5-14.0); WHITE BLOOD COUNT 11.7 10^3/uL (4.0-10.5)
[2018-03-04] MEDS: PRENATAL VITAMIN W DHA CAPSULE PO SCH (09:45)
[2018-03-04] MEDS: DOCUSATE SODIUM 100 MG CAPSULE PO SCH ×2 (09:46→16:45)
[2018-03-04] MEDS: IBUPROFEN 800 MG TABLET PO SCH ×3 (11:32→23:24)
--- NOTE | 2018-03-04 11:46 | PDOC PROGRESS REPORT ---
Subjective-OB Progress Note for:: 03/04/18 Subjective: Pt doing well, no concerns. She reports light bleeding, voiding without difficulty, regular diet and +flatus. Physical Exam (OB) Vital Signs: Temp Pulse Resp BP Pulse Ox 97.9 F 76 17 106/73 99 03/04/18 05:10 03/04/18 07:45 03/04/18 07:45 03/04/18 07:45 03/04/18 07:45 Intake & Output 03/03/18 03/04/18 03/05/18 06:59 06:59 06:59 Intake Total 5486 Output Total 8629 Balance 3277 Weight 117 kg - Dressing Removed: Yes Incision: Well Approximated Closure Type: Surgical Glue - Lochia Lochia Amount: Scant < 10 ml Lochia Color: Rubra/Red - Abdomen Description: Soft Hernia Present: No Fundal Description: Firm, Midline Fundal Height: u/u - u/2 Objective-Diagnostic Laboratory: 03/04/18 08:11 03/04/18 08:11 WBC 11.7 H RBC 2.87 L Hgb 9.0 L Hct 26.5 L MCV 92 MCH 31.5 MCHC 34.1 RDW 14.1 H Plt Count 237 Assessment and Plan(PN) - Assessment and Plan (1) delivery delivered Is this a current diagnosis for this admission?: Yes - Time Spent with Patient Time with patient: Less than 15 minutes Medications reviewed and adjusted accordingly: Yes - Disposition Anticipated Discharge: Home Within: within 24 hours
[2018-03-05] MEDS: OXYCODONE-ACETAMINOPHEN 5-325 MG TABLET PO PRN ×4 (01:53→20:42)
[2018-03-05] MEDS: SIMETHICONE 80 MG TAB.CHEW PO PRN (01:54)
[2018-03-05] MEDS: IBUPROFEN 800 MG TABLET PO SCH ×3 (05:45→17:37)
--- NOTE | 2018-03-05 09:34 | PDOC PROGRESS REPORT ---
Subjective-OB Progress Note for:: 03/05/18 Subjective: pumping milk for baby in NICU. states bleeding is minimal, passing gas, tolerating diet. pain controlled with current meds. denies needs. Physical Exam (OB) Vital Signs: Temp Pulse Resp BP Pulse Ox 98.3 F 93 16 116/79 99 03/05/18 08:06 03/05/18 08:06 03/05/18 08:06 03/05/18 08:06 03/05/18 08:06 Intake & Output 03/04/18 03/05/18 03/06/18 06:59 06:59 06:59 Intake Total 5486 800 Output Total 2209 Balance 3277 800 - Incision: Open - no s/s infection, Well Approximated Closure Type: Surgical Glue - Abdomen Description: Soft, Round Hernia Present: No Fundal Description: Firm, Midline Fundal Height: u/u - u/2 - Abdominal Inspection: Normal Distension: No distension Tenderness: Nontender - Extremities Lower extremities: Aydee's sign - neg Calf: Normal, Nontender Objective-Diagnostic Laboratory: 03/04/18 08:11 Assessment and Plan(PN) - Assessment and Plan (1) Sterilization Is this a current diagnosis for this admission?: Yes (2) delivery delivered Is this a current diagnosis for this admission?: Yes - Time Spent with Patient Time with patient: Less than 15 minutes Medications reviewed and adjusted accordingly: Yes - Disposition Anticipated Discharge: Home Within: within 24 hours
[2018-03-05] MEDS: DOCUSATE SODIUM 100 MG CAPSULE PO SCH ×2 (11:19→17:37)
[2018-03-05] MEDS: PRENATAL VITAMIN W DHA CAPSULE PO SCH (11:19)
[2018-03-06] MEDS: IBUPROFEN 800 MG TABLET PO SCH ×3 (00:32→11:14)
[2018-03-06] MEDS: OXYCODONE-ACETAMINOPHEN 5-325 MG TABLET PO PRN ×2 (05:39→11:13)
[2018-03-06] MEDS: DOCUSATE SODIUM 100 MG CAPSULE PO SCH (09:31)
[2018-03-06] MEDS: PRENATAL VITAMIN W DHA CAPSULE PO SCH (09:32)
[2018-03-06 10:13] VITALS: BP 121/74
--- NOTE | 2018-03-06 10:31 | PDOC DISCHARGE SUMMARY ---
Final Diagnosis Discharge Date: 03/06/18 - Final Diagnosis (1) delivery delivered Is this a current diagnosis for this admission?: Yes Discharge Data - Discharge Medication Home Medications: Pnv No.95/Ferrous Fum/Folic AC [ Multivitamin Tablet] 1 each PO DAILY Valacyclovir HCl [Valtrex 500 Mg Tablet] 500 mg PO DAILY 02/16/18 Reason(s) for Admission: Ceasarean Section-Repeat Procedures: None - Diagnosis Test Laboratory: Temp Pulse Resp BP Pulse Ox 97.4 F 74 16 121/74 95 03/06/18 10:12 03/06/18 10:12 03/06/18 10:12 03/06/18 10:12 03/06/18 10:12 03/02/18 03/02/18 03/04/18 09:02 10:08 08:11 RBC 3.53 L 2.87 L Hgb 11.0 L 9.0 L Hct 31.9 L 26.5 L Urine Opiates Screen NEGATIVE - Discharge information/Instructions Discharge Activity: Balance Activity w/Rest, No Lifting Over 10 Pounds, Pelvic Rest, No tub bath Discharge Diet: Regular Disposition: HOME, SELF-CARE Follow up with: [facility] in: 4, Days
== END 2018-03-06 14:27 | disposition home or self-care (01) | DRG 765 ==
LOC: 2S 05:03
PROVIDERS: ADMIT Obstetrics & Gynecology Gynecology; ATTEND Obstetrics & Gynecology Gynecology
PROC: 0UL70CZ Occlusion of Bilateral Fallopian Tubes with Extraluminal Device, Open Approach (ICD-10-PCS; 2018-03-03)
PROC: 4A1HXCZ Monitoring of Products of Conception, Cardiac Rate, External Approach (ICD-10-PCS; 2018-03-03)
PROC: 10D00Z1 Extraction of Products of Conception, Low, Open Approach (ICD-10-PCS; principal; 2018-03-03 07:45)
DX: O99.214 Obesity complicating childbirth (principal); Z68.41 Body mass index [BMI] 40.0-44.9, adult; E66.9 Obesity, unspecified; O99.334 Smoking (tobacco) complicating childbirth; F17.210 Nicotine dependence, cigarettes, uncomplicated; O77.0 Labor and delivery complicated by meconium in amniotic fluid; Z91.013 Allergy to seafood; Z30.2 Encounter for sterilization; Z3A.38 38 weeks gestation of pregnancy; Z37.0 Single live birth
CPT/HCPCS: 1961; 36415; 59025; 80307; 81001; 85025; 85027; 86850; 86900; 86901; 88307; 94799; J0131; J0456; J0690; J1885; J2210; J2250; J2270; J2370; J2405; J2590; J3010; J3490; J7060; J7120

== ENCOUNTER 2018-05-29 09:55 | Emergency (ER) | payer SELFPAY ==
[2018-05-29 10:05] VITALS: BP 133/95
[2018-05-29] MEDS ORDERED: TETRACAINE HCL 0.5% OPH SOLN 4 ML OD ONE (10:05)
--- NOTE | 2018-05-29 10:22 | ER Document Report ---
ED Eye Complaint - General Chief Complaint: Eye Problem Stated Complaint: RIGHT EYE PAIN Time Seen by Provider: 05/29/18 10:04 Mode of Arrival: Ambulatory Information source: Patient Notes: 32-year-old female presented to ED for complaint of right eye pain and drainage since yesterday. She does not have any redness or drainage to her eye at this time. She does complain of pain and states she normally wears contacts but has had them out since yesterday due to the pain. TRAVEL OUTSIDE OF THE [place] IN LAST 30 DAYS: No - HPI Onset: Yesterday Eye location: Right Injury: No Quality of pain: Burning Severity: Moderate Pain Level: 4 Contact lenses worn: Yes - She took them out yesterday Associated symptoms: Burning, Itching, Pain, Other - States she has drainage - Related Data Allergies/Adverse Reactions: Shellfish * [Shellfish] Allergy (Intermediate, Verified 05/29/18 09:58) swollen throat, itching Past Medical History - General Information source: Patient - Social History Smoking Status: Current Every Day Smoker Cigarette use (# per day): Yes - 5 cigarettes that Chew tobacco use (# tins/day): No Smoking Education Provided: Yes - Minutes Frequency of alcohol use: Occasional Drug Abuse: None Lives with: Family Family History: None, Reviewed & Not Pertinent Patient has suicidal ideation: No Patient has homicidal ideation: No - Past Medical History Cardiac Medical History: Reports: None Pulmonary Medical History: Reports: Hx Bronchitis EENT Medical History: Reports: None Neurological Medical History: Reports: None Endocrine Medical History: Reports: None Renal/ Medical History: Reports: Hx Ovarian Cysts Malignancy Medical History: Reports: None GI Medical History: Reports: Hx Gastroesophageal Reflux Disease Musculoskeletal Medical History: Reports None Skin Medical History: Reports Hx Cellulitis Psychiatric Medical History: Reports: None Traumatic Medical History: Reports: None Infectious Medical History: Reports: None Past Surgical History: Reports: Hx Gynecologic Surgery - OVARIAN CYST REMOVAL - Immunizations Hx Diphtheria, Pertussis, Tetanus Vaccination: Yes Review of Systems - Review of Systems Constitutional: No symptoms reported EENT: Eye pain, Eye discharge, Tearing Cardiovascular: No symptoms reported Respiratory: No symptoms reported Gastrointestinal: No symptoms reported Genitourinary: No symptoms reported Female Genitourinary: No symptoms reported Musculoskeletal: No symptoms reported Skin: No symptoms reported Hematologic/Lymphatic: No symptoms reported Neurological/Psychological: No symptoms reported -: Yes All other systems reviewed and negative Physical Exam - Vital signs Vitals: Temp Pulse Resp BP Pulse Ox 98.6 F 87 18 133/95 H 100 05/29/18 10:02 05/29/18 10:02 05/29/18 10:02 05/29/18 10:02 05/29/18 10:02 Interpretation: Normal - General General appearance: Appears well, Alert - HEENT Head: Normocephalic, Atraumatic Eyes: Other - Stye to the upper right eyelid internal Conjunctiva: Normal Cornea: Normal. No: Corneal abrasion, Corneal ulcer, Dendrite, Embedded foreign body, Flourescein stain uptake Extraocular movements intact: Yes Eyelashes: Normal Pupils: PERRL Visual acuity- Right eye: blurry Visual acuity- Left eye: 20/25 Visual acuity- Both eyes: 20/25 Corrective lenses worn: Yes - L eye only Lids everted for exam: right: Stye - Upper right inner eyelid, left: Normal Fundascopic: Normal Ears: Normal External canal: Normal Tympanic membrane: Normal Sinus: Normal Nasal: Normal Mouth/Lips: Normal Mucous membranes: Normal Pharynx: Normal Neck: Normal - Respiratory Respiratory status: No respiratory distress Chest status: Nontender Breath sounds: Normal Chest palpation: Normal - Cardiovascular Rhythm: Regular Heart sounds: Normal auscultation Murmur: No - Abdominal Inspection: Normal Distension: No distension Bowel sounds: Normal Tenderness: Nontender Organomegaly: No organomegaly - Back Back: Normal, Nontender - Extremities General upper extremity: Normal inspection, Nontender, Normal color, Normal ROM , Normal temperature General lower extremity: Normal inspection, Nontender, Normal color, Normal ROM , Normal temperature, Normal weight bearing. No: Aydee's sign - Neurological Neuro grossly intact: Yes Cognition: Normal Orientation: AAOx4 Hannibal Coma Scale Eye Opening: Spontaneous Hannibal Coma Scale Verbal: Oriented Hannibal Coma Scale Motor: Obeys Commands Hannibal Coma Scale Total: 15 Speech: Normal Motor strength normal: LUE, RUE, LLE, RLE Sensory: Normal - Psychological Associated symptoms: Normal affect, Normal mood - Skin Skin Temperature: Warm Skin Moisture: Dry Skin Color: Normal Course - Re-evaluation Re-evalutation: 05/29/18 10:[address] Mancia who came and examined the eye with me. Agrees there is no corneal abrasion or ulcer but there is a stye internal upper lid. Will treat with Cipro eyedrops and Bactrim and have follow-up with ophthalmology. Ibuprofen given for her headache is caused by this stye. Patient was discharged home to follow-up with her organic extractions technician. Patient was also given instructions on warm soaks to the eye. Patient verbalized understanding and agreement with treatment plan. - Vital Signs Vital signs: Temp Pulse Resp BP Pulse Ox 98.6 F 87 18 133/95 H 100 05/29/18 10:02 05/29/18 10:02 05/29/18 10:02 05/29/18 10:02 05/29/18 10:02 Discharge - Discharge Clinical Impression: Right eye stye internal upper, Acute right eye pain Condition: Stable Disposition: HOME, SELF-CARE Additional Instructions: Sty Your examination reveals that you have a sty. This is an infection of a hair follicle in the eyelid. As the infection progresses, it forms an abscess along the edge of the eyelid. A sty causes a lot of swelling and tenderness. As the body fights the infection, a lump forms. The knot slowly goes away over a couple of weeks. Treatment includes applying warm compresses to the eye for 10 to 15 minutes every two or three hours. Usually, the infection will drain from the abscess spontaneously, however, some sties require surgical drainage. You may be given antibiotic eye drops to prevent the infection from spreading to the surface of the eye. If the doctor is concerned that the infection is severe, you may be given antibiotics by mouth or shot. Call the doctor at once if vision decreases, if swelling becomes severe, or if eye pain becomes severe. See the doctor for follow-up should you fail to improve as expected. EYEDROP USE: Eyedrops are most easily applied by pulling down on the cheek just below the lower eyelid. The lower lid will pop out to form a pouch into which you can drop the medicine. A small brief sting is not unusual, especially if the eye is reddened and irritated already. Use the drops exactly as recommended. You should see the doctor at once if there is a decrease in vision, swelling of the eye, or an increase in discomfort. Ciprofloxacin You have been given an antibacterial agent, ciprofloxacin (Cipro). This medicine is not related to the penicillins, sulfas, cephalosporins, or tetracyclines. It is often given to patients who are allergic to these drugs. It has been chosen for you either because other drugs are not appropriate, or because of the nature of your problem. Cipro should not be taken with antacids, as these can decrease its effectiveness. It can be taken without regard to meals. CIPRO SHOULD NOT BE TAKEN BY CHILDREN, NURSING WOMEN, OR WOMEN. Although Cipro is usually well-tolerated, common side effects can include nausea and diarrhea. Contact your doctor if you experience any unusual symptoms while on this medication, such as joint pain or swelling, shortness of breath, wheezing, faintness, or hives Sulfa Medications The antibiotic you have received is a member of the sulfa family. These antibiotics are commonly used for eye, ear, lung, or urinary infections. Sulfa antibiotics are best taken on an empty stomach. Extra glasses of water help the kidney process the antibiotic. Sulfas are not recommended for infants under two months, or for women near the end of . Occasional side effects can include nausea or diarrhea. Stop the medication and notify your doctor at once if you develop any skin rash, bruising, jaundice (yellow color of the skin), itching, swelling, joint pain, faintness, or shortness of breath, or if you note any other new or unusual symptoms. FOLLOW-UP CARE: If you have been referred to a physician for follow-up care, call the physician s office for an appointment as you were instructed or within the next two days. If you experience worsening or a significant change in your symptoms, notify the physician immediately or return to the Emergency Department at any time for re-evaluation. Prescriptions: Ciprofloxacin HCl [Ciloxan 0.3% Oph Soln 2.5 ml] 2 drop RT_EYE Q4 #1 bottle Ibuprofen [Motrin 800 mg Tablet] 800 mg PO Q8H PRN #20 tab PRN Reason: Sulfamethoxazole/Trimethoprim [Septra-Ds 800-160 mg Tablet] 1 tab PO BID #10 tablet Forms: Elevated Blood Pressure, Return to Work Referrals: JENNIFER YAN MD [ACTIVE STAFF] - Follow up as needed SHILOH HOLLOWAY MD [ACTIVE STAFF] - Follow up as needed
[2018-05-29] MEDS ORDERED: CIPROFLOXACIN HCL 0.3% OPH SOLN 2.5 ML OD ONE (10:24)
[2018-05-29] MEDS ORDERED: SULFAMETHOXAZOLE/TRIMETHOPRIM 800-160 MG TABLET PO ONE (10:29)
[2018-05-29] MEDS ORDERED: IBUPROFEN 800 MG TABLET PO ONE (10:32)
== END 2018-05-29 10:43 | disposition home or self-care (01) ==
LOC: ER 09:55
DX: H00.021 Hordeolum internum right upper eyelid (principal); H57.11 Ocular pain, right eye; R51 Headache; F17.210 Nicotine dependence, cigarettes, uncomplicated; Z71.6 Tobacco abuse counseling; Z91.013 Allergy to seafood
CPT/HCPCS: 99283; J3490 ×2

== ENCOUNTER 2018-06-30 14:26 | Emergency (ER) | payer MEDICAID ==
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
[2018-06-30 17:35] VITALS: BP 144/96
== END 2018-06-30 17:34 | disposition home or self-care (01) ==
LOC: ER 14:26 → EEVIPCON 14:26 → ER 17:34
DX: S02.82XA Fracture of other specified skull and facial bones, left side, initial encounter for closed fracture (principal); S02.2XXA Fracture of nasal bones, initial encounter for closed fracture; S00.33XA Contusion of nose, initial encounter; S00.12XA Contusion of left eyelid and periocular area, initial encounter; S00.83XA Contusion of other part of head, initial encounter; R51 Headache; Y04.0XXA Assault by unarmed brawl or fight, initial encounter; F17.210 Nicotine dependence, cigarettes, uncomplicated
CPT/HCPCS: 70486; 99283; 99406